=== PATIENT | male | born 2000 | race Two or more races ===

== ENCOUNTER 2019-04-08 18:45 | Emergency (ER) | payer OTHER ==
[~2019-04-08] VITALS: Ht 200.7 cm; Wt 108.2 kg
[2019-04-08] MEDS ORDERED: AUGMENTIN 875 MG TAB PO STA (22:31)
[2019-04-08] MEDS ORDERED: AUGM875T28 PO (22:35)
[2019-04-08 22:38] VITALS: BP 137/67
[2019-04-08] MEDS ORDERED: IBUPROFEN 800 MG TAB PO ONE (22:45)
== END 2019-04-08 22:44 | disposition home or self-care (01) ==
LOC: M ED 18:45
DX: H66.92 Otitis media, unspecified, left ear (principal); Z88.8 Allergy status to other drugs, medicaments and biological substances; F17.220 Nicotine dependence, chewing tobacco, uncomplicated